=== PATIENT | female | born 1945 | race Asian ===

== ENCOUNTER 2018-05-23 07:54 | Emergency (ER) | payer OTHER, BC ==
[~2018-05-23] VITALS: Ht 144.8 cm; Wt 59.9 kg
[2018-05-23 07:55] VITALS: BP 189/98; Ht 144.8 cm; Wt 59.9 kg
== END 2018-05-23 09:13 | disposition home or self-care (01) ==
LOC: ED
DX: F43.9 Reaction to severe stress, unspecified (principal); I10 Essential (primary) hypertension; E11.9 Type 2 diabetes mellitus without complications; Z88.6 Allergy status to analgesic agent; V49.49XA Driver injured in collision with other motor vehicles in traffic accident, initial encounter; Y93.I9 Activity, other involving external motion; Y92.413 State road as the place of occurrence of the external cause; Y99.8 Other external cause status